=== PATIENT | female | born 1965 ===

== ENCOUNTER 2020-06-24 07:19 | Emergency (ER) | payer BC ==
[~2020-06-24] VITALS: Ht 157.5 cm; Wt 72.6 kg
[2020-06-24] MEDS ORDERED: DOTTI1 EAC1 TD (07:30)
== END 2020-06-24 08:46 | disposition home or self-care (01) ==
LOC: ED 07:19
DX: S81.012A Laceration without foreign body, left knee, initial encounter (principal); W01.198A Fall on same level from slipping, tripping and stumbling with subsequent striking against other object, initial encounter; F17.200 Nicotine dependence, unspecified, uncomplicated; Z79.899 Other long term (current) drug therapy
CPT/HCPCS: 12032; 73560; 73562; 90471; 90715; 99283-25